=== PATIENT | female | born 1990 | race American Indian/Alaskan Native ===

== ENCOUNTER 2016-05-15 18:27 | Emergency (ER) | payer SELFPAY | END 2016-05-15 18:38 | disposition left against medical advice (07) | LOC: ED 18:27 | DX: K59.00 Constipation, unspecified (principal); M54.9 Dorsalgia, unspecified; Z53.21 Procedure and treatment not carried out due to patient leaving prior to being seen by health care provider ==

== ENCOUNTER 2018-10-18 00:35 | Emergency (ER) | payer OTHER ==
[2018-10-18 00:56] VITALS: BP 127/74
[2018-10-18 02:15] LABS: Bilirubin,Urine NEG (Negative); Blood,Urine LG (Negative); Color,Urine Yellow (Yellow); Mucus,Urine FEW /HPF; Protein,Urine <15 mg/dL mg/dL (Negative)
[2018-10-18 02:37] LABS: Basophils # (Auto) 0.1 K/mm3 (0.0-0.1); Basophils % (Auto) 0.9 % (0.0-1.8); Eosinophils # (Auto) 0.1 K/mm3 (0.0-0.4); Eosinophils % (Auto) 0.5 % (0.0-4.3); Hematocrit 30.2 % (30.3-42.9); Hemoglobin 10.7 gm/dl (10.1-14.3); Lymphocytes # (Auto) 2.7 K/mm3 (1.2-5.4); Lymphocytes % (Auto) 27.3 % (13.4-35.0); Mean Corpuscular HGB Conc 36 % (30-34); Mean Corpuscular Volume 76 fl (79-97); Monocytes # (Auto) 0.5 K/mm3 (0.0-0.8); Monocytes % (Auto) 4.9 % (0.0-7.3); Platelet Count 259 K/mm3 (140-440); Red Blood Count 3.96 M/mm3 (3.65-5.03); Red Cell Distribution Width 16.8 % (13.2-15.2)
[2018-10-18] MEDS ORDERED: ROCEPHIN IM ONE (04:28)
[2018-10-18] MEDS ORDERED: TYLENOL PO ONE (04:28)
[2018-10-18] MEDS ORDERED: XYLOCAINE 1% MPF 5 mL INFILTRATI ONE (04:28)
--- NOTE | 2018-10-18 05:21 | Emergency Department Report ---
ED Abdominal Pain HPI - General Chief Complaint: Abdominal Pain Stated Complaint: POSSIBLE MISCARRIAGE Time Seen by Provider: 10/18/18 04:20 Source: patient Mode of arrival: Ambulatory Limitations: No Limitations - History of Present Illness Initial Comments: Patient is a A3 28-year-old -[place] female with no past medical history and unknown gestational period presents to the ED with complaint of acute onset persistent diffuse lower abdominal pain with vaginal bleeding and nausea for the last 1 week. Patient states that the vaginal bleeding has worsened in the last 12 hours with large blood clots and consistently heavy. Patient denies vomiting, dizziness, diarrhea, dysuria, urinary frequency and urgency, headache, chest pain, shortness of breath, fever and chills or low back pain. MD Complaint: abdominal pain, other (vaginal bleeding) -: Gradual, week(s) (1) Location: suprapubic Radiation: suprapubic Migration to: no migration Severity: severe Severity scale (0 -10): 7 Quality: cramping, sharp Consistency: constant Improves With: nothing Worsens With: nothing Associated Symptoms: nausea, other (Vaginal bleeding). denies: vomiting, diarrhea, fever, chills, hematemesis, hematochezia, melena, hematuria, anorexia - Related Data Previous Rx's Medication Instructions Recorded Last Taken Type Promethazine [Phenergan] 25 mg PO Q6HR PRN #20 tab 10/18/18 Unknown Rx cephALEXin [Keflex] 500 mg PO Q6HR #40 capsule 10/18/18 Unknown Rx Allergies Allergy/AdvReac Type Severity Reaction Status Date / Time No Known Allergies Allergy Verified 10/18/18 00:42 ED Review of Systems ROS: Stated complaint: POSSIBLE MISCARRIAGE Other details as noted in HPI Comment: All other systems reviewed and negative Constitutional: denies: chills, fever Eyes: denies: eye pain, eye discharge, vision change ENT: denies: ear pain, throat pain Respiratory: denies: cough, shortness of breath, wheezing Cardiovascular: denies: chest pain, palpitations Endocrine: no symptoms reported Gastrointestinal: abdominal pain (lower abdominal pain), nausea. denies: vomiting, diarrhea, constipation, hematemesis, hematochezia Genitourinary: other (Heavy vaginal bleeding). denies: urgency, dysuria, di scharge Musculoskeletal: denies: back pain, joint swelling, arthralgia Skin: denies: rash, lesions Neurological: denies: headache, weakness, paresthesias Psychiatric: denies: anxiety, depression Hematological/Lymphatic: denies: easy bleeding, easy bruising ED Past Medical Hx - Past Medical History Previous Medical History?: No - Surgical History Past Surgical History?: No - Social History Smoking Status: Former Smoker Substance Use Type: None - Medications Home Medications: Home Medications Medication Instructions Recorded Confirmed Last Taken Type Promethazine [Phenergan] 25 mg PO Q6HR PRN #20 tab 10/18/18 Unknown Rx cephALEXin [Keflex] 500 mg PO Q6HR #40 capsule 10/18/18 Unknown Rx ED Physical Exam - General Limitations: No Limitations General appearance: alert, in no apparent distress - Head Head exam: Present: atraumatic, normocephalic, normal inspection - Eye Eye exam: Present: normal appearance, PERRL, EOMI. Absent: scleral icterus, conjunctival injection, nystagmus, periorbital swelling, periorbital tenderness Pupils: Present: normal accommodation - ENT ENT exam: Present: normal exam, normal orophraynx, mucous membranes moist, TM's normal bilaterally, normal external ear exam - Neck Neck exam: Present: normal inspection, full ROM. Absent: tenderness, meningismus, lymphadenopathy, thyromegaly - Respiratory Respiratory exam: Present: normal lung sounds bilaterally. Absent: respiratory distress, wheezes, rales, rhonchi, chest wall tenderness, accessory muscle use, decreased breath sounds, prolonged expiratory - Cardiovascular Cardiovascular Exam: Present: regular rate, normal rhythm, normal heart sounds. Absent: systolic murmur, diastolic murmur, rubs, gallop - GI/Abdominal GI/Abdominal exam: Present: soft, tenderness (Suprapubic), normal bowel sounds. Absent: guarding, rebound, hyperactive bowel sounds, hypoactive bowel sounds - Rectal Rectal exam: Present: deferred - External exam: Present: other (deferred, patient declined) Bi-manual exam: Present: other (declined) - Extremities Exam Extremities exam: Present: normal inspection, full ROM, normal capillary refill - Back Exam Back exam: Present: normal inspection, full ROM. Absent: tenderness, CVA tenderness (R), CVA tenderness (L), muscle spasm, paraspinal tenderness, vert ebral tenderness - Neurological Exam Neurological exam: Present: alert, oriented X3, CN II-XII intact, normal gait, reflexes normal - Psychiatric Psychiatric exam: Present: normal affect, normal mood - Skin Skin exam: Present: warm, dry, intact, normal color. Absent: rash ED Course Vital Signs 10/18/18 10/18/18 10/18/18 00:53 04:43 05:00 Temperature 99.2 F Pulse Rate 84 Respiratory 18 18 18 Rate Blood Pressure 127/74 O2 Sat by Pulse 100 96 Oximetry - Reevaluation(s) Reevaluation #1: 10/18/18 05:24 Patient is alert and oriented 3 and is not in distress with normal vital signs. Patient was treated for pain in the ED and lab test results showed hCG Quant of 3926.0, urinalysis shows significant blood in the urine and UTI. The rest of the laboratory results are unremarkable. Patient was also treated in the ED with Rocephin 1 g intramuscular injection for acute urinary tract infection. Transvaginal and complete a pelvic ultrasound reports are pending. We'll continue to reevaluate the patient. 10/18/18 05:25 Reevaluation #2: 10/18/18 06:18 On reevaluation, patient is alert and oriented 3 and her pain is well controlled. The Complete pelvic and transvaginal ultrasound shows an intrauterine sac like structure without embryo or yolk sac in the cervix corresponding to an 8 week 0 day . This finding is most likely retained products of conception with incomplete . There are also benign appearing functional cyst in both ovaries. There is no evidence of ovarian torsion or evidence of free fluid or findings that would suggest an ectopic . Patient was discharged home and advised to maintain pelvic rest and follow-up with AIR CONDITIONING INSTALLER SUPERVISOR physician in within 48 hours for final confirmation complete miscarriage with serial hCG Quant studies. Patient also discharged home on antibiotics with acute urinary tract infection and advised to take Tylenol as needed for pain. ED Medical Decision Making - Lab Data Result diagrams: 10/18/18 01:28 - Radiology Data The Complete pelvic and transvaginal ultrasound shows an intrauterine sac like structure without embryo or yolk sac in the cervix corresponding to an 8 week 0 day . This finding is most likely retained products of conception with incomplete . There are also benign appearing functional cyst in both ovaries. There is no evidence of ovarian torsion or evidence of free fluid or findings that would suggest an ectopic . - Medical Decision Making Patient is alert and oriented 3 and is not in distress with normal vital signs. Patient was treated for pain in the ED and lab test results showed hCG Quant of 3926.0, urinalysis shows significant blood in the urine and UTI. The rest of the laboratory results are unremarkable. Patient was also treated in the ED with Rocephin 1 g intramuscular injection for acute urinary tract infection. On reevaluation, patient is alert and oriented 3 and her pain is well controlled. The Complete pelvic and transvaginal ultrasound shows an intrauterine sac like structure without embryo or yolk sac in the cervix corresponding to an 8 week 0 day . This finding is most likely retained products of conception with incomplete . There are also benign appearing functional cyst in both ovaries. There is no evidence of ovarian torsion or evidence of free fluid or findings that would suggest an ectopic . Patient was discharged home and advised to maintain pelvic rest and follow-up with AIR CONDITIONING INSTALLER SUPERVISOR physician in within 48 hours for final confirmation complete miscarriage with serial hCG Quant studies. Patient also discharged home on antibiotics with acute urinary tract infection and advised to take Tylenol as needed for pain. - Differential Diagnosis Threatened miscarriage, Abdominal pain; Ovarian Cyst; Acute UTI Critical care attestation.: If time is entered above; I have spent that time in minutes in the direct care of this critically ill patient, excluding procedure time. ED Disposition Clinical Impression: Acute urinary tract infection, Abdominal pain affecting , Incomplete miscarriage, Threatened miscarriage Disposition: DC-01 TO HOME OR SELFCARE Is pt being admited?: No Does the pt Need Aspirin: No Condition: Stable Instructions: Abdominal Pain (ED), Threatened Miscarriage (ED), Urinary Tract Infection in Women (ED) Additional Instructions: Take medications with food, drink plenty of fluids and follow up with your AIR CONDITIONING INSTALLER SUPERVISOR physician in 48 hours for serial hCG Quant studies to confirm the viability of . Maintain complete pelvic rest. Prescriptions: cephALEXin [Keflex] 500 mg PO Q6HR #40 capsule Promethazine [Phenergan] 25 mg PO Q6HR PRN #20 tab PRN Reason: Nausea Referrals: [facility] MD MADDI [Primary Care Provider] - 3-5 Days Time of Disposition: 06:28 Print Language: MALIAN
--- NOTE | 2018-10-18 05:43 | Ultrasound Report ---
PROCEDURE: US OB <= 14 WEEKS FETUS TECHNIQUE: Transabdominal imaging was obtained the pelvis including Doppler interrogation of the adn exa. HISTORY: hemorrhage, pelvic pain, +ve COMPARISONS: None FINDINGS: The uterus is anteverted measuring 9.3 x 5.6 x 5.7 cm. The endometrial thickness is 19.0 mm. There is an ovoid saclike structure in the cervix without a pole or yolk sac. Free fluid is not seen. T he gestational sac diameter would correspond to an 8 week 0 day . The right ovary measures 1.5 x 2.6 x 1.5 cm. Within the right ovary is a 1.2 cm anechoic cyst. The bl ood flow is normal. Left ovary measures 5.2 x 2.0 x 1.8 cm. There are 2 anechoic cyst in the left ovary one measuring 2.6 cm in diameter measuring 1.3 cm in diameter. The blood flow is normal left ovary. IMPRESSION: Intrauterine saclike structure without embryo or yolk sac in the cervix. The finding is most likely r etained products of conception since an embryo should be seen based on the size of the gestational sa c. Benign-appearing functional cysts in both ovaries. No evidence of ovarian torsion. No evidence of free fluid or findings that would suggest an ectopic . This document is electronically signed by Felipe Magana MD., October 18 2018 05:40:37 AM ET
--- NOTE | 2018-10-18 05:45 | Ultrasound Report ---
PROCEDURE: US OB TRANSVAGINAL TECHNIQUE: Transvaginal imaging was obtained of the pelvis including Doppler interrogation of the ad nexa. HISTORY: hemorrhage, pelvic pain, +ve COMPARISONS: The uterus is anteverted measuring 9.3 x 5.6 x 5.7 cm. The anterolisthesis 19.0 mm. In t he cervix is a thin-walled saclike structure which would correspond to an 8 week 0 day . The re is no evidence of an embryo or yolk sac within the gestational sac. Free fluid is not seen. The right ovary measures 1.5 x 2.6 x 1.5 cm. Within the right ovary is an anechoic cyst measuring 1.2 cm in diameter. The blood flow to the right ovary is normal. The left ovary measures 5.2 x 2.0 x 1.8 cm. Within left ovary are functional cysts one measuring 2.6 cm in diameter and the other measuring 1.3 cm in diameter. The blood flow is normal to the left ovary . FINDINGS: As above IMPRESSION: Thin-walled saclike structure in the cervix without and embryo or yolk sac as described. The findings most likely represent retained products of conception with incomplete . Thickened endometrium. No evidence of a normal IUP. Functional cysts in both ovaries. No evidence of ovarian torsion. No evidence of free fluid or changes that suggest an ectopic .. This document is electronically signed by Felipe Magana MD., October 18 2018 05:43:10 AM ET
== END 2018-10-18 06:30 | disposition home or self-care (01) ==
LOC: ED 00:35
DX: O03.4 Incomplete spontaneous abortion without complication (principal); O23.41 Unspecified infection of urinary tract in pregnancy, first trimester; Z3A.08 8 weeks gestation of pregnancy; Z87.891 Personal history of nicotine dependence
CPT/HCPCS: 36415; 76801; 76817; 81001; 84702; 85025; 86900; 86901; 87086; 96372; 99284; J0696

== ENCOUNTER 2020-04-09 09:19 | Emergency (ER) | payer OTHER ==
[2020-04-09 09:44] VITALS: BP 125/73
[2020-04-09 10:34] LABS: Basophils # (Auto) 0.1 K/mm3 (0.0-0.1); Basophils % (Auto) 1.3 % (0.0-1.8); Eosinophils % (Auto) 0.3 % (0.0-4.3); Hematocrit 31.8 % (30.3-42.9); Hemoglobin 11.5 gm/dl (10.1-14.3); Lymphocytes # (Auto) 3.1 K/mm3 (1.2-5.4); Lymphocytes % (Auto) 27.6 % (13.4-35.0); Mean Corpuscular HGB Conc 36 % (30-34); Mean Corpuscular Volume 78 fl (79-97); Monocytes # (Auto) 0.6 K/mm3 (0.0-0.8); Monocytes % (Auto) 5.5 % (0.0-7.3); Platelet Count 259 K/mm3 (140-440); Red Blood Count 4.09 M/mm3 (3.65-5.03); Red Cell Distribution Width 17.8 % (13.2-15.2)
[2020-04-09 10:52] LABS: Bacteria,Urine 2+ /HPF (Negative); Mucus,Urine 3+ /HPF
--- NOTE | 2020-04-09 10:52 | Emergency Department Report ---
ED HPI - General Chief complaint: Abdominal Pain Stated complaint: STOMACH PAIN Time Seen by Provider: 04/09/20 10:44 Source: patient Mode of arrival: Ambulatory Limitations: No Limitations - History of Present Illness Initial comments: pt is a 30 yo female who presents to the ED with c/o suprapubic cramping that began 3 days ago. She denies any vomiting, diarrhea, fever, vaginal bleeding, vaginal discharge, itching, burning, dysuria. She states her last menstrual cycle was January 21, 2020. She states she believes she is approximately 11 weeks based on her last menstrual cycle. She has not seen anyone for this . She denies any past medical history. No allergies to medications. /P: 1/A: 4 - Related Data Previous Rx's Medication Instructions Recorded Last Taken Type Promethazine [Phenergan] 25 mg PO Q6HR PRN #20 tab 10/18/18 Unknown Rx cephALEXin [Keflex] 500 mg PO Q6HR #40 capsule 10/18/18 Unknown Rx Acetaminophen [Tylenol] 650 mg PO Q8HR PRN #14 capsule 04/09/20 Unknown Rx cephALEXin [Keflex] 500 mg PO BID 7 Days #14 cap 04/09/20 Unknown Rx Allergies Allergy/AdvReac Type Severity Reaction Status Date / Time No Known Allergies Allergy Verified 10/18/18 00:42 ED Review of Systems ROS: Stated complaint: STOMACH PAIN Other details as noted in HPI Comment: All other systems reviewed and negative ED Past Medical Hx - Past Medical History Previous Medical History?: No - Surgical History Past Surgical History?: No - Social History Smoking Status: Never Smoker Substance Use Type: None - Medications Home Medications: Home Medications Medication Instructions Recorded Confirmed Last Taken Type Promethazine [Phenergan] 25 mg PO Q6HR PRN #20 tab 10/18/18 Unknown Rx cephALEXin [Keflex] 500 mg PO Q6HR #40 capsule 10/18/18 Unknown Rx Acetaminophen [Tylenol] 650 mg PO Q8HR PRN #14 capsule 04/09/20 Unknown Rx cephALEXin [Keflex] 500 mg PO BID 7 Days #14 cap 04/09/20 Unknown Rx ED Physical Exam - General Limitations: No Limitations General appearance: alert, in no apparent distress - Head Head exam: Present: atraumatic, normocephalic - Eye Eye exam: Present: normal appearance - ENT ENT exam: Present: mucous membranes moist - Respiratory Respiratory exam: Present: normal lung sounds bilaterally. Absent: respiratory distress, wheezes, rales, rhonchi, stridor, chest wall tenderness, accessory muscle use, decreased breath sounds, prolonged expiratory - Cardiovascular Cardiovascular Exam: Present: regular rate, normal rhythm, normal heart sounds. Absent: systolic murmur, diastolic murmur, rubs, gallop - GI/Abdominal GI/Abdominal exam: Present: soft, normal bowel sounds. Absent: distended, tenderness, guarding, rebound, rigid - Neurological Exam Neurological exam: Present: alert, oriented X3 - Psychiatric Psychiatric exam: Present: normal affect, normal mood - Skin Skin exam: Present: warm, dry, intact ED Course Vital Signs 04/09/20 09:44 Temperature 98.7 F Pulse Rate 93 H Respiratory 18 Rate Blood Pressure 125/73 [Left] O2 Sat by Pulse 100 Oximetry ED Medical Decision Making - Lab Data Result diagrams: 04/09/20 10:03 04/09/20 10:03 Lab Results 04/09/20 04/09/20 04/09/20 Range/Units 10:03 10:03 10:03 WBC 11.3 H (4.5-11.0) K/mm3 RBC 4.09 (3.65-5.03) M/mm3 Hgb 11.5 (10.1-14.3) gm/dl Hct 31.8 (30.3-42.9) % MCV 78 L (79-97) fl MCH 28 (28-32) pg MCHC 36 H (30-34) % RDW 17.8 H (13.2-15.2) % Plt Count 259 (140-440) K/mm3 Lymph % (Auto) 27.6 (13.4-35.0) % Graves % (Auto) 5.5 (0.0-7.3) % Eos % (Auto) 0.3 (0.0-4.3) % Baso % (Auto) 1.3 (0.0-1.8) % Lymph # (Auto) 3.1 (1.2-5.4) K/mm3 Graves # (Auto) 0.6 (0.0-0.8) K/mm3 Eos # (Auto) 0.0 (0.0-0.4) K/mm3 Baso # (Auto) 0.1 (0.0-0.1) K/mm3 Seg Neutrophils % 65.3 (40.0-70.0) % Seg Neutrophils # 7.4 (1.8-7.7) K/mm3 Sodium 133 L (137-145) mmol/L Potassium 3.1 L (3.6-5.0) mmol/L Chloride 102.4 (98-107) mmol/L Carbon Dioxide 23 (22-30) mmol/L Anion Gap 11 mmol/L BUN 8 (7-17) mg/dL Creatinine 0.4 L (0.6-1.2) mg/dL Estimated GFR > 60 ml/min BUN/Creatinine Ratio 20 % Glucose 71 (65-100) mg/dL Calcium 9.5 (8.4-10.2) mg/dL Total Bilirubin 1.00 (0.1-1.2) mg/dL AST 15 (5-40) units/L ALT 9 (7-56) units/L Alkaline Phosphatase 50 (35-129) units/L Total Protein 8.0 (6.3-8.2) g/dL Albumin 4.2 (3.9-5) g/dL Albumin/Globulin Ratio 1.1 % HCG, Qual Positive (Negative) HCG, Quant (0-4) mIU/mL Urine Color (Yellow) Urine Turbidity (Clear) Urine pH (5.0-7.0) Ur Specific [place] (1.003-1.030) Urine Protein (Negative) mg/dL Urine Glucose (UA) (Negative) mg/dL Urine Ketones (Negative) mg/dL Urine Blood (Negative) Urine Nitrite (Negative) Ur Reducing Substances Urine Bilirubin (Negative) Urine Ictotest Urine Urobilinogen (<2.0) mg/dL Ur Leukocyte Esterase (Negative) Urine WBC (Auto) (0.0-6.0) /HPF Urine RBC (Auto) (0.0-6.0) /HPF U Epithel Cells (Auto) (0-13.0) /HPF Urine Bacteria (Auto) (Negative) /HPF Urine Mucus /HPF 04/09/20 04/09/20 Range/Units 10:03 Unknown WBC (4.5-11.0) K/mm3 RBC (3.65-5.03) M/mm3 Hgb (10.1-14.3) gm/dl Hct (30.3-42.9) % MCV (79-97) fl MCH (28-32) pg MCHC (30-34) % RDW (13.2-15.2) % Plt Count (140-440) K/mm3 Lymph % (Auto) (13.4-35.0) % Graves % (Auto) (0.0-7.3) % Eos % (Auto) (0.0-4.3) % Baso % (Auto) (0.0-1.8) % Lymph # (Auto) (1.2-5.4) K/mm3 Graves # (Auto) (0.0-0.8) K/mm3 Eos # (Auto) (0.0-0.4) K/mm3 Baso # (Auto) (0.0-0.1) K/mm3 Seg Neutrophils % (40.0-70.0) % Seg Neutrophils # (1.8-7.7) K/mm3 Sodium (137-145) mmol/L Potassium (3.6-5.0) mmol/L Chloride (98-107) mmol/L Carbon Dioxide (22-30) mmol/L Anion Gap mmol/L BUN (7-17) mg/dL Creatinine (0.6-1.2) mg/dL Estimated GFR ml/min BUN/Creatinine Ratio % Glucose (65-100) mg/dL Calcium (8.4-10.2) mg/dL Total Bilirubin (0.1-1.2) mg/dL AST (5-40) units/L ALT (7-56) units/L Alkaline Phosphatase (35-129) units/L Total Protein (6.3-8.2) g/dL Albumin (3.9-5) g/dL Albumin/Globulin Ratio % HCG, Qual (Negative) HCG, Quant 89648 H (0-4) mIU/mL Urine Color Yellow (Yellow) Urine Turbidity Hazy (Clear) Urine pH 5.0 (5.0-7.0) Ur Specific [place] 1.023 (1.003-1.030) Urine Protein 30 mg/dl (Negative) mg/dL Urine Glucose (UA) Neg (Negative) mg/dL Urine Ketones Neg (Negative) mg/dL Urine Blood Neg (Negative) Urine Nitrite Neg (Negative) Ur Reducing Substances Not Reportable Urine Bilirubin Neg (Negative) Urine Ictotest Not Reportable Urine Urobilinogen 2.0 (<2.0) mg/dL Ur Leukocyte Esterase Sm (Negative) Urine WBC (Auto) 10.0 H (0.0-6.0) /HPF Urine RBC (Auto) 3.0 (0.0-6.0) /HPF U Epithel Cells (Auto) 3.0 (0-13.0) /HPF Urine Bacteria (Auto) 2+ (Negative) /HPF Urine Mucus 3+ /HPF - Radiology Data Radiology results: report reviewed OB ultrasound: 1. Viable intrauterine . Gestational age is 10 weeks 2 days by u ltrasound, consistent with the patient's last LMP. Recommend mechanical screening and ultrasound follow-up in the second trimester to screen for anomalies. 2. Small area of perigestational hemorrhage. Radiologist Morgan Redd MD - Medical Decision Making pt is a 30 yo female who presents to the ED with c/o suprapubic cramping that began 3 days ago. She denies any vomiting, diarrhea, fever, vaginal bleeding, vaginal discharge, itching, burning, dysuria. She states her last menstrual cycle was January 21, 2020. She states she believes she is approximately 11 weeks based on her last menstrual cycle. She has not seen anyone for this . She denies any past medical history. No allergies to medications. /P: 1/A: 4. VSS. on exam: No abdominal tenderness on exam, no guarding, no rebound, no rigidity, normal bowel sounds, no peritoneal signs. Labs with hypokalemia at 3.1, otherwise stable. [place] [address]. UA has evidence of mild UTI. OB US: 1. Viable intrauterine . Gestational age is 10 weeks 2 days by ultrasound, consistent with the patient's last LMP. Recommend mechanical screening and ultrasound follow-up in the second trimester to screen for anomalies.2. Small area of perigestatio nal hemorrhage. Discussed all results with patient and answered questions. Discussed the importance of EXTRUSION TECHNICIAN follow-up with patient. Patient given prescription for Keflex and Tylenol. Advised patient Please take medication as prescribed. Increase your water intake. Please take a vitamin [id number]. Please practice pelvic rest. Follow-up with EXTRUSION TECHNICIAN. Please increase your potassium intake. Return to emergency room for any new or worsening symptoms. - Differential Diagnosis IUP, ectopic, subchorionic hemorrhage, ovarian cyst, UTI, placenta previa Critical care attestation.: If time is entered above; I have spent that time in minutes in the direct care of this critically ill patient, excluding procedure time. ED Disposition Clinical Impression: Hypokalemia Abdominal pain during Qualifiers: Trimester: first trimester Qualified Code(s): O26.891 - Other specified related conditions, first trimester UTI (urinary tract infection) Qualifiers: Urinary tract infection type: acute cystitis Hematuria presence: without hematuria Qualified Code(s): N30.00 - Acute cystitis without hematuria Subchorionic hemorrhage Qualifiers: Fetus number: single or unspecified fetus Trimester: first trimester Qualified Code(s): O41.8X10 - Other specified disorders of amniotic fluid and membranes, first trimester, not applicable or unspecified Disposition: DC-01 TO HOME OR SELFCARE Is pt being admited?: No Does the pt Need Aspirin: No Condition: Stable Instructions: Abdominal Pain During , [id number], Urinary Tract Infection, Adult, [id number], Potassium Content of Foods, Subchorionic Hematoma, Abdominal Pain (ED) Additional Instructions: Please take medication as prescribed. Increase your water intake. Please take a vitamin [id number]. Please practice pelvic rest. Follow-up with EXTRUSION TECHNICIAN. Please increase your potassium intake. Return to emergency room for any new or worsening symptoms. Prescriptions: cephALEXin [Keflex] 500 mg PO BID 7 Days #14 cap Acetaminophen [Tylenol] 650 mg PO Q8HR PRN #14 capsule PRN Reason: pain Referrals: PRIMARY CARE, [Primary Care Provider] - 2-3 Days [facility] [Provider Group] - 2-3 Days [facility] [Provider Group] - 2-3 Days [facility] [Provider Group] - 2-3 Days Time of Disposition: 13:43 Print Language: NEPALESE
[2020-04-09 10:53] LABS: Bilirubin,Urine NEG (Negative); Blood,Urine NEG (Negative); Color,Urine Yellow (Yellow)
[2020-04-09 10:56] LABS: Alanine Aminotransferase 9 units/L (7-56); Albumin 4.2 g/dL (3.9-5); Blood Urea Nitrogen 8 mg/dL (7-17); Calcium 9.5 mg/dL (8.4-10.2); Hemolysis Index 1
[2020-04-09] MEDS ORDERED: POTASSIUM CHLORIDE ER 20 MEQ TAB PO ONE ×2 (11:13→14:19)
[2020-04-09] MEDS ORDERED: ACETAMINOPHEN 325 MG TAB PO ONE (11:13)
[2020-04-09 11:16] LABS: BUN/Creatinine Ratio 20
--- NOTE | 2020-04-09 13:33 | Ultrasound Report ---
ULTRASOUND OBSTETRIC REASON FOR EXAM: abd pain, TECHNIQUE: Transabdominal and transvaginal ultrasound was performed to evaluate a first trimester pre gnancy. COMPARISON: None available. FINDINGS: FINDINGS: The pole, yolk sac, and gestational sac are normal in appearance. [place]-rump length: 34 mm. This corresponds with a gestational age of 10 weeks 2 days. heart rate: 190 bpm Perigestational hemorrhage: Small area of perigestational hemorrhage. MATERNAL FINDINGS: Uterus measures 8.3 x 6.5 x 8.7 cm. 2.1 x 2.2 x 2.6 cm hypoechoic area in the uterine fundus may refl ect uterine fibroid. Nonvisualization of the ovaries. Cul-de-sac: There is no free fluid. IMPRESSION: 1. Viable intrauterine . Gestational age is 10 weeks 2 days by ultrasound, consistent with t he patient's LMP. Recommend clinical screening and ultrasound follow-up in the second trimester to sc reen for anomalies. 2. Small area of perigestational hemorrhage. Signer Name: Morgan Fajardo MD Signed: 04/09/2020 1:28 PM Workstation Name: [id number]
[2020-04-09] MEDS ORDERED: ACETAMINOPHEN 325 MG TAB ONE (14:18)
== END 2020-04-09 14:29 | disposition home or self-care (01) ==
LOC: ED 09:19
DX: O23.41 Unspecified infection of urinary tract in pregnancy, first trimester (principal); O41.8X10 Other specified disorders of amniotic fluid and membranes, first trimester, not applicable or unspecified; O26.891 Other specified pregnancy related conditions, first trimester; E87.6 Hypokalemia; Z79.899 Other long term (current) drug therapy; Z3A.10 10 weeks gestation of pregnancy
CPT/HCPCS: 36415; 76801; 80053; 81001; 84702; 84703; 85025; 87086